=== PATIENT | female | born 2000 | race Caucasian/White ===

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

== ENCOUNTER 2022-04-20 10:03 | Emergency (ER) | payer OTHER, SELFPAY ==
[2022-04-20 10:45] VITALS: BP 123/73; PULSE 89; RESP 16; TEMP 36.7; O2SAT 98; BMI 49.2
[2022-04-20 11:02] LABS: UTC Strep Screen (Rapid) Positive (Negative)
--- NOTE | 2022-04-20 11:15 | EXP.UTC ---
Discharge Plan Disposition Patient Disposition: Home, Self-Care Condition: Good Prescriptions Prescriptions: New amoxicillin [amoxicillin] 500 mg tablet 500 mg PO BID 10 Days Qty: 20 0RF No Action naproxen 500 mg tablet 500 mg PO Q12H Qty: 20 0RF Rx Instructions: administer with food or milk fluoxetine [Prozac] 40 mg capsule 40 mg PO DAILY fluticasone propionate 50 mcg/actuation spray,suspension 1 spray INTRANASAL DAILY PRN Rx Instructions: administer into each nostril fluoxetine 20 MG tablet 20 mg PO DAILY Rx Instructions: TAKES 60 MG TOTAL DAILY bupropion HCl 300 MG tablet extended release 24 hr 300 mg PO DAILY Referrals Follow up/Referrals: Angie Short PA [Primary Care Provider] - See instructions Activity Restrictions/Add. Instructions Additional Instructions/Restrictions: Start antibiotics today be sure to take it as ordered with the full length of time although you should start feeling better in 24-48 hours. Change toothbrush and toothpaste 24-48 hours after starting antibiotics Tylenol or Motrin as needed for fever or pain Encourage fluids, water, Gatorade, Powerade, try cold fluids, popsicles, ice cream will make it feel better You are contagious for 24 hours. Avoid kissing anyone, no eating or drinking after anyone. You are contagious. Follow-up the ER for new or worsening symptoms or no noticeable improvement over the next 24-48 hours. Follow-up with PCP this week. Clinical Impressions Clinical Impression: Strep sore throat, Otitis media Instructions Patient Instructions: Middle Ear Infection, DI for Strep Throat Discharge ED Provider: Elina ([facility])Kenji [facility] [place] HPI General Stated complaint: Sore throat, headache, congestion Mode of Arrival: Ambulatory Source of Information: Patient Limitations: No Limitations Time Seen by Provider: 04/20/22 11:15 Description of Symptoms (Recalled from Triage Doc. by RN): PATIENT C/O SORE THROAT, LEFT EAR PAIN, HEADACHE AND CONGESTION X 4 DAYS HEENT Symptoms (Recalled from RN notes): Yes Resp Symptoms (Recalled from RN notes): No Skin Symptoms (Recalled from RN notes): No MS Symptoms (Recalled from RN notes): No Functional Status (Recalled from RN notes): WNL History of Present Illness Provider Complaint: 21 yr old female presnts for left ear pain, sore throat, slaughter and congestion for 4 days Related Data Home Medications Medication Instructions Recorded Confirmed fluoxetine 40 mg capsule (Prozac) 40 mg PO DAILY Depression 05/27/17 09/11/20 bupropion HCl 300 mg 24 hr tablet, 300 mg PO DAILY Anxiety 10/30/18 09/11/20 extended release fluoxetine 20 mg tablet 20 mg PO DAILY Depression 10/30/18 09/11/20 fluticasone propionate 50 1 spray intranasal DAILY PRN 11/19/18 09/11/20 mcg/actuation nasal spray,suspension Previous Rx's Medication Instructions Recorded naproxen 500 mg tablet 500 mg PO Q12H #20 tabs 09/11/20 amoxicillin 500 mg tablet 500 mg PO BID 10 days #20 tabs 04/20/22 Allergies Allergy/AdvReac Type Severity Reaction Status Date / Time cefdinir Allergy Mild Verified 09/11/20 15:24 ceftriaxone [From Rocephin] Allergy Mild Verified 09/11/20 15:24 Worker's Comp Is this a Worker's Comp case?: No [facility] Disclaimer: The information contained in this section may have been updated after the patient was seen, as this information can be updated by other users. 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
[2022-04-20 11:20] VITALS: BP 123/73; PULSE 89; RESP 16; TEMP 36.7; O2SAT 98
== END 2022-04-20 11:27 | disposition home or self-care (01) ==
PROVIDERS: Emergency Provider Nurse Practitioner Family; PCP Physician Assistant
DX: J02.0 Streptococcal pharyngitis (principal); B95.0 Streptococcus, group A, as the cause of diseases classified elsewhere; H92.02 Otalgia, left ear; R51.9 Headache, unspecified; R09.81 Nasal congestion; Z79.51 Long term (current) use of inhaled steroids; Z79.1 Long term (current) use of non-steroidal anti-inflammatories (NSAID); Z88.8 Allergy status to other drugs, medicaments and biological substances
CPT/HCPCS: 87880; 99213; G0463

== ENCOUNTER 2022-05-15 08:36 | Emergency (ER) | payer OTHER, SELFPAY ==
[2022-05-15] VITALS (7 sets, daily range): BP systolic 112–153; BP diastolic 71–99; PULSE 63–90; RESP 16–18; TEMP 36.8; O2SAT 95–98; BMI 34.9; BMI 49.4; BMI 49.2
--- NOTE | 2022-05-15 09:18 | EXP.UTC ---
Discharge Plan Disposition Patient Disposition: Home, Self-Care Condition: Good Prescriptions Prescriptions: New methocarbamol 750 mg tablet 750 mg PO Q8H Qty: 30 0RF lidocaine [Lidoderm] 5 % adhesive patch,medicated 1 patch topical DAILY Qty: 30 0RF Rx Instructions: leave on most painful area for up to 12 hrs ibuprofen 600 mg tablet 600 mg PO Q8H PRN (Reason: pain) Qty: 60 0RF No Action fluoxetine [Prozac] 40 mg capsule 40 mg PO DAILY Rx Instructions: takes 40+20=60 mg total fluoxetine 20 MG tablet 20 mg PO DAILY Rx Instructions: TAKES 60 MG TOTAL DAILY bupropion HCl 300 MG tablet extended release 24 hr 300 mg PO DAILY Referrals Follow up/Referrals: Angie Short PA [Primary Care Provider] - See instructions Clinical Impressions Clinical Impression: Low back pain Instructions Patient Instructions: DI for Low Back Pain, Activity May Be Better Than Rest for Low Back Pain Recovery, Lidocaine Transdermal Patch, Ibuprofen, Methocarbamol Discharge ED Provider: Sky Ash [facility] General Chief complaint: Abdominal Pain Stated complaint: Rt side back pain Mode of Arrival: Ambulatory Source of Information: Patient and Relative Limitations: No Limitations Time Seen by Provider: 05/15/22 09:18 Description of Symptoms (Recalled from Triage Doc. by RN): . History of Present Illness Provider Complaint: pt comes in with right sided back pain that began last night. does not radiate or increase in intensity. symptoms describes as tightness and worse with some movements. Related Data Home Medications Medication Instructions Recorded Confirmed fluoxetine 40 mg capsule (Prozac) 40 mg PO DAILY Depression 05/27/17 05/15/22 bupropion HCl 300 mg 24 hr tablet, 300 mg PO DAILY Anxiety 10/30/18 05/15/22 extended release fluoxetine 20 mg tablet 20 mg PO DAILY Depression 10/30/18 05/15/22 Previous Rx's Medication Instructions Recorded ibuprofen 600 mg tablet 600 mg PO Q8H PRN pain #60 tabs 05/15/22 lidocaine 5 % topical patch 1 patch topical DAILY #30 ea 05/15/22 (Lidoderm) methocarbamol 750 mg tablet 750 mg PO Q8H #30 tabs 05/15/22 Allergies Allergy/AdvReac Type Severity Reaction Status Date / Time cefdinir Allergy Mild Verified 05/15/22 09:29 ceftriaxone [From Rocephin] Allergy Mild Verified 05/15/22 09:29 [facility] Disclaimer: The information contained in this section may have been updated after the patient was seen, as this information can be updated by other users. Medical History Pharyngitis Surgical History History of mandibular surgery Social History Smoking Status: Never smoker second hand exposure: No alcohol intake: never substance use type: denies use current occupational status: student Travel in the last 8 weeks: None household members: family housing: house current occupational exposures/hazards: No ROS Obtained: Yes All systems reviewed & no additional complaints except as documented Constitutional Constitutional: Denies chills and Denies fever(s) Eyes Eyes: Denies eye discharge ENT Ears, Nose, Mouth, and Throat: Denies dizziness, Denies otalgia and Denies sore throat Cardiovascular Cardiovascular: Denies chest pain Respiratory Respiratory: Denies shortness of breath, Denies chest congestion, Denies cough, Denies stridor and Denies wheezing Gastrointestinal Gastrointestingal: Denies nausea or vomiting Musculoskeletal Musculoskeletal: Reports system reviewed and no additional complaints, except as documented and Denies arthralgias Integumentary/Breasts Skin/Breast: Denies rash Neurologic Neurologic: Denies dizziness and Denies paresthesias Allergic/Immunologic Allergic/Immunologic: Denies wheezing Physical Exam General General appea
[2022-05-15 09:38] LABS: Apearance,Urine Clear (Clear); Bilirubin,Urine Negative (Negative); Blood, Urine 1+ (Negative); Color,Urine Dark Yellow (Yellow); Glucose,Urine (UA) Negative (Negative); Ketones,Urine Negative (Negative); PH,Urine 5.5 (5.0-8.5); Protein,Urine Negative (Negative)
[2022-05-15 09:39] LABS: UTC Leukocyte Esterase,Urine Negative (Negative); UTC Nitrate,Urine Negative (Negative); Urobilinogen,Urine 0.2 EU/dl (0.2)
--- NOTE | 2022-05-15 09:48 | CT_ITS ---
FINAL REPORT TECHNIQUE: Noncontrast CT exam of the abdomen and pelvis. This study was performed with techniques to keep radiation doses as low as reasonably achievable (ALARA). Individualized dose reduction techniques using automated exposure control or adjustment of mA and/or kV according to the patient''s size were employed. CLINICAL HISTORY: r/o kidney stone left flank pain since last night with nausea COMPARISON: None FINDINGS: Abdomen: Lung bases are clear. Solitary punctate calcified gallstone without gallbladder disease. The remaining solid organs are unremarkable. No obstruction identified. The kidneys show no stone disease or obstruction. No obvious renal mass is present. No ureteral stones are present. Pelvis: Appendix is normal. Urinary bladder is unremarkable. Dominant cystic mass right central pelvis measuring 8.9 x 6.6 x 6.3 cm, likely ovarian in origin. Benign neoplasm favored. Left ovary and uterus are unremarkable. IMPRESSION: No evidence of upper urinary tract stone disease or obstruction. Incidental cystic mass right adnexa. Recommend gynecologic follow-up with pelvic ultrasound. Uncomplicated cholelithiasis. Reviewed, Interpreted and Dictated by Denny Chavez MD Transcribed by Kayli Brown Authenticated and [facility]
[2022-05-15 10:06] LABS: Basophils # 0.1 K/mm3 (0-0.2); Basophils % 0.6 % (0.1-2.0); Chloride 108 mmol/L (98-107); Eosinophils # 0.3 K/mm3 (0.0-0.4); Eosinophils % 3.4 % (0.1-12.0); Hematocrit 36.8 % (37.0-47.0); Lymphocytes # 1.9 K/mm3 (0.7-4.5); Lymphocytes % 23.8 % (10-50); Mean Corpuscular HGB Conc 32.7 g/dL (31.8-35.4); Mean Corpuscular Hemoglobin 25.8 pg (27.0-31.2); Mean Corpuscular Volume 78.9 fl (81-99); Mean Platelet Volume 7.1 fl (7.4-10.4); Monocytes # 0.4 K/mm3 (0.1-1.0); Monocytes % 4.8 % (1.7-9.3); Neutrophils # 5.4 K/mm3 (1.8-7.8); Neutrophils % 67.4 % (37.0-80.0); Platelet Count 408 K/mm3 (142-424); Potassium 3.9 mmoL/L (3.5-5.1); Red Blood Count 4.67 M/mm3 (4.20-5.40); Red Cell Distribution Width 14.8 % (11.5-17.5); Sodium 139 mmol/L (136-145)
[2022-05-15 10:08] LABS: Blood Urea Nitrogen 15 mg/dl (7-17); Creatinine Clearance Estimated 129 mL/min (50-200); Estimated Glomerular Filt Rate 107 ml/min (>60); GFR (African American) 129 ML/MIN (>60)
[2022-05-15 10:09] LABS: Alanine Aminotransferase 31 U/L (12-78); Albumin Level 4.3 g/dl (3.5-5.0); Albumin/Globulin Ratio 1.3 (1.1-1.8); Alkaline Phosphatase 94 U/L (38-126); Anion Gap 11.9 mEq/L (5-15); Aspartate Amino Transferase 23 U/L (14-36); Bilirubin,Total 0.3 mg/dl (0.2-1.3); Calcium 8.8 mg/dl (8.4-10.2); Carbon Dioxide 23 mmol/L (22.0-30.0); Globulin 3.4 g/dL (1.3-3.2); Glucose 120 mg/dl (74-100); Lipase 55 U/L (23-300); Total Protein,Serum 7.7 g/dl (6.3-8.2)
[2022-05-15 10:14] LABS: Lactic Acid 0.8 mmol/L (0.7-2.1)
[2022-05-15 10:30] LABS: Urine Pregnancy, HCG Qual. Negative (Negative)
--- NOTE | 2022-05-15 10:34 | PC.NURSE ---
PT TRANSPORTED TO RADIOLOGY.
--- NOTE | 2022-05-15 12:13 | PC.NURSE ---
PROVIDED PT WITH [facility].
--- NOTE | 2022-05-15 12:16 | PC.NURSE ---
Called radiology and spoke with Kyle to see if there was a preliminary report available, she is faxing one down at this time.
--- NOTE | 2022-05-15 12:17 | PC.NURSE ---
pt sitting up in chair in ED room 8 with Mother. No other needs at this time. Call light within reach
--- NOTE | 2022-05-15 12:22 | PC.NURSE ---
Preliminary report given to TERELL JONES
--- NOTE | 2022-05-15 12:27 | HMH.EDGENADL ---
Discharge Plan Disposition Patient Disposition: Home, Self-Care Condition: Good Prescriptions Prescriptions: New methocarbamol 750 mg tablet 750 mg PO Q8H Qty: 30 0RF lidocaine [Lidoderm] 5 % adhesive patch,medicated 1 patch topical DAILY Qty: 30 0RF Rx Instructions: leave on most painful area for up to 12 hrs ibuprofen 600 mg tablet 600 mg PO Q8H PRN (Reason: pain) Qty: 60 0RF No Action fluoxetine [Prozac] 40 mg capsule 40 mg PO DAILY Rx Instructions: takes 40+20=60 mg total fluoxetine 20 MG tablet 20 mg PO DAILY Rx Instructions: TAKES 60 MG TOTAL DAILY bupropion HCl 300 MG tablet extended release 24 hr 300 mg PO DAILY Referrals Follow up/Referrals: Angie Short PA [Primary Care Provider] - See instructions Clinical Impressions Clinical Impression: Low back pain Instructions Patient Instructions: Methocarbamol, Lidocaine Transdermal Patch, Ibuprofen, DI for Low Back Pain, Activity May Be Better Than Rest for Low Back Pain Recovery Discharge ED Provider: Sky Ash Adult HPI General Chief complaint: Abdominal Pain Stated complaint: Rt side back pain Time Seen by Provider: 05/15/22 09:18 Mode of Arrival: Ambulatory Source of Information: Patient and Parent(s) Limitations: No Limitations Description of Symptoms (Recalled from ER Triage Doc. by RN): pt comes in with c/o lower right back pain that began last night. History of Present Illness HPI narrative: Assumed care from [facility], 21-year-old female presenting with pain in the right flank and lower back that started last night, no preceding trauma or strain that she is aware of, does report difficulty with urination, no dysuria or hematuria, no fevers, there is some mild nausea associated with this. She denies any history of kidney stone Related Data Home Medications Medication Instructions Recorded Confirmed fluoxetine 40 mg capsule (Prozac) 40 mg PO DAILY Depression 05/27/17 05/15/22 bupropion HCl 300 mg 24 hr tablet, 300 mg PO DAILY Anxiety 10/30/18 05/15/22 extended release fluoxetine 20 mg tablet 20 mg PO DAILY Depression 10/30/18 05/15/22 Previous Rx's Medication Instructions Recorded ibuprofen 600 mg tablet 600 mg PO Q8H PRN pain #60 tabs 05/15/22 lidocaine 5 % topical patch 1 patch topical DAILY #30 ea 01/05/23 (Lidoderm) methocarbamol 750 mg tablet 750 mg PO Q8H #30 tabs 05/15/22 Allergies Allergy/AdvReac Type Severity Reaction Status Date / Time cefdinir Allergy Mild Verified 05/15/22 09:29 ceftriaxone [From Rocephin] Allergy Mild Verified 05/15/22 09:29 [facility] Disclaimer: The information contained in this section may have been updated after the patient was seen, as this information can be updated by other users. Medical History Pharyngitis Surgical History History of mandibular surgery Social History Smoking Status: Never smoker second hand exposure: No alcohol intake: never substance use type: denies use current occupational status: student Travel in the last 8 weeks: None household members: family housing: house current occupational exposures/hazards: No ROS Obtained: Yes Systems reviewed as appropriate & no additional complaints except as documented Constitutional Constitutional: Reports system reviewed and no additional complaints, except as documented Eyes Eyes: Reports system reviewed and no additional complaints, except as documented ENT Ears, Nose, Mouth, and Throat: Reports system reviewed and no additional complaints, except as documented Cardiovascular Cardiovascular: Reports system reviewed and no additional complaints, except as documented Respiratory Respiratory: Reports system reviewed and no additional complaints, except as documented Gastrointest
--- NOTE | 2022-05-15 12:34 | PC.NURSE ---
ER MD at speaking with patient and family regarding update on POC
== END 2022-05-15 12:48 | disposition home or self-care (01) ==
LOC: ER 08:48 → UTC 08:49 → ER 09:45
PROVIDERS: Emergency Medicine; Emergency Provider Nurse Practitioner Family; PCP Physician Assistant
DX: M54.50 Low back pain, unspecified (principal); Z87.09 Personal history of other diseases of the respiratory system
CPT/HCPCS: 74176; 80053; 81003; 81025; 83605; 83690; 85025; 87086; 96374; 96375; 99285; J2405

== ENCOUNTER 2022-05-16 18:20 | Observation (INO) | payer OTHER, SELFPAY ==
[2022-05-16] VITALS (11 sets, daily range): BP systolic 101–142; BP diastolic 60–89; PULSE 97–117; RESP 18–28; TEMP 36.4–37.2; O2SAT 92–97; BMI 49.4
--- NOTE | 2022-05-16 18:51 | US_ITS ---
PROCEDURE INFORMATION: Exam: US Duplex Artery or Vein of the Abdominal and/or Reproductive Organs, Limited Exam date and time: 05/16/2022 7:17 PM Age: 21 years old Clinical indication: Abnormal findings; Abnormal imaging test; Patient HX: Recent ct-- onset of worsening RT side pain today; Additional info: Ovarian cyst, R/O torsion TECHNIQUE: Imaging protocol: Real-time duplex ultrasound scan of the arterial or venous flow of the abdomen and/or reproductive organs, with color Doppler flow and spectral waveform analysis with image documentation. Exam focused on the region of clinical interest. Duplex exam was performed to evaluate for vascular conditions. COMPARISON: CT ABDOMEN PELVIS WO CON 05/15/2022 10:35 AM FINDINGS: Ovaries: Normal color flow and Doppler waveforms within the left ovary. 8.2 x 6.5 x 7.6 cm mixed echogenicity mass within the region of the right ovary without definite flow. IMPRESSION: Mixed echogenicity mass within the region of the right ovary which may be benign or malignant and does raise concern for torsion. PROCEDURE INFORMATION: Exam: US Pelvis, Transvaginal Exam date and time: 05/16/2022 7:17 PM Age: 21 years old Clinical indication: Abnormal findings; Abnormal imaging test; Patient HX: Recent ct-- onset of worsening RT side pain today; Additional info: Ovarian cyst, R/O torsion TECHNIQUE: Imaging protocol: Real-time transvaginal pelvic ultrasound with image documentation. Transvaginal imaging was used for better evaluation of the endometrium, adnexa, and/or cervix. COMPARISON: CT ABDOMEN PELVIS WO CON 05/15/2022 10:35 AM FINDINGS: Uterus: Uterus is normal. Endometrial stripe is normal. Right ovary/adnexa: 8.2 x 6.5 x 7.6 cm mixed echogenicity mass within the region of the right ovary without definite flow. Left ovary/adnexa: Normal. No mass. Normal ovarian blood flow. Intraperitoneal space: Large volume free fluid.
--- NOTE | 2022-05-16 18:53 | HMH.EDGENADL ---
Discharge Plan Disposition Patient Disposition: Still a Patient Condition: Fair Prescriptions Prescriptions: No Action fluoxetine [Prozac] 40 mg capsule 40 mg PO DAILY Rx Instructions: takes 40+20=60 mg total fluoxetine 20 MG tablet 20 mg PO DAILY Rx Instructions: TAKES 60 MG TOTAL DAILY bupropion HCl 300 MG tablet extended release 24 hr 300 mg PO DAILY methocarbamol 750 mg tablet 750 mg PO Q8H Qty: 30 0RF lidocaine [Lidoderm] 5 % adhesive patch,medicated 1 patch topical DAILY Qty: 30 0RF Rx Instructions: leave on most painful area for up to 12 hrs ibuprofen 600 mg tablet 600 mg PO Q8H PRN (Reason: pain) Qty: 60 0RF Referrals Follow up/Referrals: Angie Short PA [Primary Care Provider] - See instructions Clinical Impressions Clinical Impression: Ovarian cyst, Ovarian torsion, Free fluid in pelvis Discharge ED Provider: Ivan Jaquez General Adult HPI General Chief complaint: PAIN Stated complaint: Abd pain Time Seen by Provider: 05/16/22 18:44 Mode of Arrival: Ambulatory Source of Information: Patient Limitations: No Limitations Description of Symptoms (Recalled from ER Triage Doc. by RN): pt to ed c/o right flank pain that radiates to the lower abd. pt was seen in the ed on 05/16 for similar complaint. History of Present Illness HPI narrative: Complains of pelvic pain. Seen in the emergency department yesterday for right flank pain. Had a CT scan. No kidney stone seen. Treated for musculoskeletal pain. She now has pain diffusely across her pelvic area. She called Dr. Mariscal's office today and they reviewed the CT scan result which showed a cyst and gallstones. She returns to the emergency department for further evaluation. She has had vomiting today. No diarrhea and no other new symptoms. No fever. States her pain today is worse than it was yesterday. Currently rates it 10/18. Related Data Home Medications Medication Instructions Recorded Confirmed fluoxetine 40 mg capsule (Prozac) 40 mg PO DAILY Depression 05/27/17 05/15/22 bupropion HCl 300 mg 24 hr tablet, 300 mg PO DAILY Anxiety 10/30/18 05/15/22 extended release fluoxetine 20 mg tablet 20 mg PO DAILY Depression 10/30/18 05/15/22 Previous Rx's Medication Instructions Recorded ibuprofen 600 mg tablet 600 mg PO Q8H PRN pain #60 tabs 05/15/22 lidocaine 5 % topical patch 1 patch topical DAILY #30 ea 05/15/22 (Lidoderm) methocarbamol 750 mg tablet 750 mg PO Q8H #30 tabs 05/15/22 Allergies Allergy/AdvReac Type Severity Reaction Status Date / Time cefdinir Allergy Mild Verified 05/15/22 09:29 ceftriaxone [From Rocephin] Allergy Mild Verified 05/15/22 09:29 [facility] Disclaimer: The information contained in this section may have been updated after the patient was seen, as this information can be updated by other users. Medical History Pharyngitis Surgical History History of mandibular surgery Social History Smoking Status: Never smoker second hand exposure: No alcohol intake: never substance use type: denies use current occupational status: student Travel in the last 8 weeks: None household members: family housing: house current occupational exposures/hazards: No ROS Obtained: Yes Systems reviewed as appropriate & no additional complaints except as documented Constitutional Constitutional: Denies fever(s), Denies headache(s) and Denies weakness ENT Ears, Nose, Mouth, and Throat: Denies headache(s), Denies nasal discharge and Denies sore throat Cardiovascular Cardiovascular: Denies chest pain Respiratory Respiratory: Denies shortness of breath and Denies cough Gastrointestinal Gastrointestingal: Reports abdominal pain; Denies constipation, diarrhea or vomiting Genitourinary Female
[2022-05-16 19:03] LABS: Chloride 104 mmol/L (98-107); Potassium 3.7 mmoL/L (3.5-5.1); Sodium 139 mmol/L (136-145)
[2022-05-16 19:06] LABS: Alanine Aminotransferase 25 U/L (12-78); Alkaline Phosphatase 77 U/L (38-126); Anion Gap 13.7 mEq/L (5-15); Aspartate Amino Transferase 20 U/L (14-36); Bilirubin,Total 0.8 mg/dl (0.2-1.3); Blood Urea Nitrogen 9 mg/dl (7-17); Calcium 8.7 mg/dl (8.4-10.2); Carbon Dioxide 25 mmol/L (22.0-30.0); Creatinine Clearance Estimated 151 mL/min (50-200); Estimated Glomerular Filt Rate 127 ml/min (>60); GFR (African American) 154 ML/MIN (>60); Glucose 105 mg/dl (74-100)
[2022-05-16 19:07] LABS: Albumin Level 4.3 g/dl (3.5-5.0); Albumin/Globulin Ratio 1.3 (1.1-1.8); Globulin 3.4 g/dL (1.3-3.2); Lipase 23 U/L (23-300); Total Protein,Serum 7.7 g/dl (6.3-8.2)
[2022-05-16 19:11] LABS: Basophils # 0.2 K/mm3 (0-0.2); Basophils % 1.7 % (0.1-2.0); Eosinophils # 0.2 K/mm3 (0.0-0.4); Eosinophils % 1.4 % (0.1-12.0); Hematocrit 36.1 % (37.0-47.0); Hemoglobin 11.7 g/dL (12.2-16.2); Lymphocytes # 1.2 K/mm3 (0.7-4.5); Lymphocytes % 8.5 % (10-50); Mean Corpuscular HGB Conc 32.5 g/dL (31.8-35.4); Mean Corpuscular Hemoglobin 25.9 pg (27.0-31.2); Mean Corpuscular Volume 79.6 fl (81-99); Mean Platelet Volume 7.3 fl (7.4-10.4); Neutrophils # 11.1 K/mm3 (1.8-7.8); Neutrophils % 81.4 % (37.0-80.0); Platelet Count 353 K/mm3 (142-424); Red Blood Count 4.53 M/mm3 (4.20-5.40); Red Cell Distribution Width 15.1 % (11.5-17.5); White Blood Count 13.6 K/mm3 (4.5-13.0)
[2022-05-16 19:13] LABS: Microscopic, Urine URINE MICROSCOPIC (MICROSCOPIC)
--- NOTE | 2022-05-16 19:40 | PC.NURSE ---
pt out of room to US.
--- NOTE | 2022-05-16 19:52 | PC.NURSE ---
pt back from US @ this time.
[2022-05-16 19:58] LABS: Appearance,Urine CLEAR (Clear); Blood, Urine TRACE-L (Negative); Color,Urine YELLOW (Yellow); Glucose,Urine (UA) Negative (Negative); Ketones,Urine TRACE (Negative); Leukocyte Esterase,Urine Negative (Negative); Nitrate,Urine Negative (Negative); PH,Urine 5.5 (5.0-8.5); Protein,Urine Negative (Negative); Specific Gravity, Urine 1.025 (1.005-1.030); Urobilinogen,Urine 0.2 EU/dl (0.2)
[2022-05-16 20:12] LABS: Bilirubin,Urine Negative (Negative)
[2022-05-16 20:13] LABS: Amorphous Sediment,Urine Trace /lpf; RBC,Urine Occasional #/hpf (0-3); Squamous Epithelial Cell,Urine Occasional #/hpf (0-5)
--- NOTE | 2022-05-16 20:44 | PC.NURSE ---
Dr Brown at bedside with pt
--- NOTE | 2022-05-16 21:02 | EXP.HP ---
History of Present Illness *Admission Date: 05/16/22 *Reason for visit:: Severe right lower quadrant pain, right ovarian cyst *History of present illness: She is a 21-year-old 0 para 0 young lady who complains of right lower quadrant pain that started about 48 hours ago. She was seen in the ER last night and a CT scan showed that she had a complex 8 cm right ovarian mass. She had increasing pain this evening and came back to the ER. An ultrasound shows that she now has significant free fluid in the pelvis as well as this complex mass. To me it looks like a hemorrhagic ovarian cyst. She could also have a torsion of this ovary as well. [facility] Disclaimer: The information contained in this section may have been updated after the patient was seen, as this information can be updated by other users. Medical History Pharyngitis Surgical History History of mandibular surgery Social History Smoking Status: Never smoker second hand exposure: No alcohol intake: never substance use type: denies use current occupational status: student Travel in the last 8 weeks: None household members: family housing: house current occupational exposures/hazards: No Review of Systems Review of Systems Review of systems:: pertinent systems reviewed and negative unless documented below Constitutional Constitutional: Denies headache(s) and Denies weakness ENT Ears, Nose, Mouth, and Throat: Denies headache(s) *Musculoskeletal Musculoskeletal: Denies numbness *Neurologic Neurologic: Denies headache(s), Denies numbness and Denies weakness Meds Home Medications and Allergies Home Medications Medication Instructions Recorded Confirmed Type fluoxetine 40 mg capsule (Prozac) 40 mg PO DAILY Depression 05/27/17 05/15/22 History bupropion HCl 300 mg 24 hr tablet, 300 mg PO DAILY Anxiety 10/30/18 05/15/22 History extended release fluoxetine 20 mg tablet 20 mg PO DAILY Depression 10/30/18 05/15/22 History ibuprofen 600 mg tablet 600 mg PO Q8H PRN pain #60 tabs 05/15/22 Rx lidocaine 5 % topical patch 1 patch topical DAILY #30 ea 05/15/22 Rx (Lidoderm) methocarbamol 750 mg tablet 750 mg PO Q8H #30 tabs 05/15/22 Rx New Prescriptions to Start Prescriptions: Allergies Allergy/AdvReac Type Severity Reaction Status Date / Time cefdinir Allergy Mild Verified 05/15/22 09:29 ceftriaxone [From Rocephin] Allergy Mild Verified 05/15/22 09:29 Exam Data for Last 24 hours Vital signs and Labs for Last 24 Hours: Temp Pulse Resp BP Pulse Ox 97.8 F 113 H 18 114/69 97 05/16/22 18:42 05/16/22 20:00 05/16/22 18:42 05/16/22 20:00 05/16/22 20:00 Laboratory Results - last 24 hr 05/16/22 18:25: Urine Color Yellow, Urine Appearance Clear, Urine pH 5.5, Ur Specific [place] 1.025, Urine Protein Negative, Urine Glucose (UA) Negative, Urine Ketones Trace, Urine Blood Trace-l, Urine Nitrate Negative, Urine Bilirubin Negative, Urine Urobilinogen 0.2, Ur Leukocyte Esterase Negative, Urine RBC Occasional, Ur Squamous Epith Cells Occasional, Amorphous Sediment Trace 05/16/22 18:45: WBC 13.6 H D, RBC 4.53, Hgb 11.7 L, Hct 36.1 L, MCV 79.6 L, MCH 25.9 L, MCHC 32.5, RDW 15.1, Plt Count 353, MPV 7.3 L, Neut % (Auto) 81.4 H, Lymph % (Auto) 8.5 L, Terry % (Auto) 7.0, Eos % (Auto) 1.4, Baso % (Auto) 1.7, Neut # (Auto) 11.1 H, Lymph # (Auto) 1.2, Terry # (Auto) 1.0, Eos # (Auto) 0.2, Baso # (Auto) 0.2 05/16/22 18:45: Sodium 139, Potassium 3.7, Chloride 104, Carbon Dioxide 25, Anion Gap 13.7, BUN 9 D, Creatinine 0.60, Estimated Creat Clear 151, Estimated GFR 127, Est GFR ( Amer) 154, Glucose 105 H, Calcium 8.7, Total Bilirubin 0.8, AST 20, ALT 25, Alkaline Phosphatase 77, Total Protein 7.7, Albumin 4.3, Globulin 3.4 H, Albumin/Globulin Ratio 1.3, Lipase 23 I & O for Last 24 ho
[2022-05-16 21:15] LABS: Coronavirus 19, PCR Not Detected (NotDetected); Influenza A, PCR Not Detected (NotDetected); Influenza B, PCR Not Detected (NotDetected)
--- NOTE | 2022-05-16 21:36 | PC.NURSE ---
Pt gone to surgery @ this time.
--- NOTE | 2022-05-16 22:16 | EXP.ANES.CKL ---
[facility] Disclaimer: The information contained in this section may have been updated after the patient was seen, as this information can be updated by other users. Medical History Pharyngitis Surgical History History of mandibular surgery Social History Smoking Status: Never smoker second hand exposure: No alcohol intake: never substance use type: denies use current occupational status: student Travel in the last 8 weeks: None household members: family housing: house current occupational exposures/hazards: No [facility] Anesthesia Checklist Patient Identification Patient Identification: Arm Band and Verbal (Name & ) Structural Data Admitted From: Emergency Dept Planned Operative Procedure/s: Right ovarian cystectomy Consent for Planned Operative Procedure(s) Verified: Yes Verified Documents: Surgical Consent NPO Status Verified Time NPO: 16:00 (sips of water) Additional verifications Anesthesia Reactions: No Airway Assessment C-Spine Mobility Assessed: Yes TMJ Mobility Assessed: Yes Dentition: Good Dentition Neurological Assessment Level of Consciousness: Awake, Alert and Appropriate Anesthesia Plan Anesthesia Risk discussed: Yes ASA Class: III Anesthesia Type: General
--- NOTE | 2022-05-16 22:41 | SUR.OPER ---
2241-pt's mother updated at this time
--- NOTE | 2022-05-16 23:17 | EXP.OP.NOTE ---
Date of procedure: 05/16/22 Pre-op Diagnosis:: Right lower quadrant pain, right ovarian mass, free fluid in the pelvis Post-op Diagnosis:: Torsion of the right fallopian tube with hemorrhage. Procedure performed:: Laparoscopic right salpingectomy Surgeon:: Carlos Escamilla MD DETASSELER:: Deejay Arizmendi Anesthesia: GETA Estimated blood loss (mL): 50 Clinical Note:: She is a 21-year-old 0 para 0 young lady who complains of right lower quadrant pain. A CT scan as well as ultrasound showed a six 8 x 6 cm complex mass on the right side. It was felt to be her right ovary, possible torsion. Operative findings:: She had an 8 cm mass on the right side that turned out to be her right fallopian tube that had twisted upon itself and filled up with blood. It was about 8 x 6 cm in size. The right ovary appeared normal as did the left ovary and tube. The uterus appeared normal. The upper abdomen appeared normal. The rest the pelvis appeared normal. Operative note:: She was taken the operating room where general anesthesia was found to be adequate. She was prepped and draped in normal sterile fashion in the semilithotomy position. A straight catheter was used to drain the bladder. A weighted speculum is placed in vagina and the antilipid the cervix was grasped with a tenaculum. Then using dilators I dilated the cervix to approximately 3 mm. I then placed a Jewell uterine manipulator into the uterine cavity and insufflated balloon. I injected 10 cc of ropivacaine around the umbilicus and made a small incision within the umbilicus. I then inserted a Veress needle into the abdominal cavity and insufflated the abdominal cavity to a pressure of 20 mmHg. I then inserted a 5 mm trocar under direct vision. I injected through and through the pubic hairline, made a small incision here and inserted a 10 mm trocar under direct vision. I identified the inferior epigastric arteries went lateral to these and injected through and through with 10 cc of ropivacaine. I then made a small incision and inserted a 5 mm trocar here under direct vision. The findings were as previously stated. I was then able to detorsed the tube and I saw that it was the distal half of the fallopian tube that was distended and torsed. It was purple in color. There was fluid within the tube itself. The fluid was straw-colored tinged with blood. Using her Traphill scalpel I cut across the tube near the ovary. This completely freed up the tube. I then made sure that hemostasis was excellent around the ovary using hemoclips as well as cautery. The fallopian tube was then morcellated and brought out through the 10 mm trocar. The last bits of the tube were brought out together in an Endo Catch bag through the 10 mm trocar. I then inspected the pelvis once again and rinsed it with saline. The ovary and fallopian tube and were completely hemostatic. I did elect to place a large piece of Surgicel over the right ovary. The gas was then out of the abdomen and once again hemostasis was assured. I injected approximately 20 cc of ropivacaine into the pelvis. Secondary trochars were then removed under direct vision. The camera and trocar removed together. The 10 mm trocar site was then closed deeply with [id number] 2-0 Vicryl suture followed by running subcuticular 4-0 Monocryl suture. The 5 mm trocar sites were closed with subcuticular 4 Monocryl suture. Sterile dressings were applied. She tolerated the procedure well and was taken to the recovery room in excellent condition. All sponge, instrument and needle counts were correct. The estimated blood loss was less than 50 cc. Condition: stable Disposition: PACU Specimens:: Right fallopian tube Complications:: None
--- NOTE | 2022-05-16 23:25 | P.PNANES_ITS ---
[facility] Anesthesia Record Part I Anesthesia Record I Intake, IV Amount: 1,200 Estimated blood loss (mL): 40 Urine output (mL): 150 Blood Pressure: 120/71 SaO2: 92 Pulse Rate: 101 Respiratory Rate: 28 Temperature: 97.5 F Patient is:: Drowsy, Oral/Nasal airway and Stable Stable to PACU at:: 23:21
[2022-05-17] VITALS (11 sets, daily range): BP systolic 105–130; BP diastolic 51–66; PULSE 86–108; RESP 15–18; TEMP 37–37.1; O2SAT 88–97
--- NOTE | 2022-05-17 00:01 | PC.NURSE ---
2342-detailed report called to NORY De La Cruz 4230-pt transported to OB room 274 via hospital bed w/tim rails up and left in care of NORY De La Cruz with bed locked in lowest position, vss, pt stable
--- NOTE | 2022-05-17 05:41 | EXP.DC.SUM ---
General Admission date:: 05/16/22 Discharge date: 05/17/22 HPI HPI HPI: She is a 21-year-old 0 para 0 young lady who complains of right lower quadrant pain that started about 48 hours ago. She was seen in the ER last night and a CT scan showed that she had a complex 8 cm right ovarian mass. She had increasing pain this evening and came back to the ER. An ultrasound shows that she now has significant free fluid in the pelvis as well as this complex mass. To me it looks like a hemorrhagic ovarian cyst. She could also have a torsion of this ovary as well. Hospital Course Hospital Course Hospital Course: On May 16, 2022 she underwent a laparoscopic removal of her right fallopian tube for torsion and hemosalpinx. The right tube was distended approximately two 8 x 6 cm. It was filled with fluid and blood. It was significantly edematous and necrotic. She has done well postoperatively and has remained afebrile throughout hospitalization. She is eating and drinking and ambulating. Her pain is reasonably well controlled. She is discharged home to follow-up with me in approximately 2 weeks time. She was given a prescription for Percocet 5/325 number 20 tablets. She was given the usual instructions with respect to limiting her activity, driving and sexual activity. She was given instructions with respect to wound care. Her condition on discharge is stable and improved Exam Data for Last 24 hours Vital signs and Labs for Last 24 Hours: Temp Pulse Resp BP Pulse Ox 98.6 F 91 H 17 108/56 L 97 05/17/22 02:30 05/17/22 03:00 05/17/22 03:00 05/17/22 03:00 05/17/22 03:00 Laboratory Results - last 24 hr 05/16/22 18:25: Urine Color Yellow, Urine Appearance Clear, Urine pH 5.5, Ur Specific [place] 1.025, Urine Protein Negative, Urine Glucose (UA) Negative, Urine Ketones Trace, Urine Blood Trace-l, Urine Nitrate Negative, Urine Bilirubin Negative, Urine Urobilinogen 0.2, Ur Leukocyte Esterase Negative, Urine RBC Occasional, Ur Squamous Epith Cells Occasional, Amorphous Sediment Trace 05/16/22 18:45: WBC 13.6 H D, RBC 4.53, Hgb 11.7 L, Hct 36.1 L, MCV 79.6 L, MCH 25.9 L, MCHC 32.5, RDW 15.1, Plt Count 353, MPV 7.3 L, Neut % (Auto) 81.4 H, Lymph % (Auto) 8.5 L, Power % (Auto) 7.0, Eos % (Auto) 1.4, Baso % (Auto) 1.7, Neut # (Auto) 11.1 H, Lymph # (Auto) 1.2, Power # (Auto) 1.0, Eos # (Auto) 0.2, Baso # (Auto) 0.2 05/16/22 18:45: Sodium 139, Potassium 3.7, Chloride 104, Carbon Dioxide 25, Anion Gap 13.7, BUN 9 D, Creatinine 0.60, Estimated Creat Clear 151, Estimated GFR 127, Est GFR ( Amer) 154, Glucose 105 H, Calcium 8.7, Total Bilirubin 0.8, AST 20, ALT 25, Alkaline Phosphatase 77, Total Protein 7.7, Albumin 4.3, Globulin 3.4 H, Albumin/Globulin Ratio 1.3, Lipase 23 05/16/22 21:05: SARS-CoV-2 (PCR) Not detected, Influenza A Untype (PCR) Not detected, Influenza Type B (PCR) Not detected I & O for Last 24 hours: Intake & Output 05/14/22 05/15/22 05/16/22 05/17/22 11:59 11:59 11:59 11:59 Intake Total 1200 / 1200 Balance 1200 / 1200 Weight 325 lb Constitutional Constitutional: no acute distress *Routine HEENT Exam Head: Present normocephalic *Routine Respiratory Exam Respiratory: Present normal respiratory effort *Routine Abdominal Exam Abdominal: Present soft; Absent distended Results Data Completed and Pending Labs on day of discharge: Labs from last 24 hours 05/16/22 05/16/22 05/16/22 21:05 18:45 18:45 WBC 13.6 H D RBC 4.53 Hgb 11.7 L Hct 36.1 L MCV 79.6 L MCH 25.9 L MCHC 32.5 RDW 15.1 Plt Count 353 MPV 7.3 L Neut % (Auto) 81.4 H Lymph % (Auto) 8.5 L Power % (Auto) 7.0 Eos % (Auto) 1.4 Baso % (Auto) 1.7 Neut # (Auto) 11.1 H Lymph # (Auto) 1.2 Power # (Auto) 1.0 Eos # (Auto) 0.2 Baso # (Auto) 0.2 Sodium 139 Potassium 3.7 Chloride 104 Carbon Dioxide 25 Anion Gap 13.7 BUN 9 D Creatinine 0.60 Estimat
--- NOTE | 2022-05-17 06:50 | PC.NURSE ---
pt has rested well throughout night, no complaints of pain or discomfort, discharge instructions reviewed with patient questions encouraged and answered, pt verbalizes understanding.
--- NOTE | 2022-05-20 14:00 | CARE MANAGER ---
Attempted post-discharge phone interview, no answer.
--- NOTE | 2022-05-26 07:02 | EXP.ANES.II ---
[facility] Anesthesia Record Part II Anesthesia Record Part II Discharge Time: 23:51 Destination: Obstetric Gynecology Dept PACU nurse assessment reviewed?: Yes Patient Condition:: Good Anesthesia Complications:: None Swallowing reflex intact?: Yes Cyanosis?: No Blood Pressure: 134/89 Pulse Rate: 109 Temperature: 98.6 F Mental Status: Alert & Oriented Pain level:: 0 Nausea and/or vomitting:: None Intake, IV Amount: 0
[2022-05-26 07:03] VITALS: BP 134/89; PULSE 109; TEMP 37
== END 2022-05-17 07:18 | disposition home or self-care (01) ==
LOC: ER 20:11 → SDC 21:39 → OB 22:25
PROVIDERS: Admitting Provider Nurse Practitioner Obstetrics & Gynecology; Emergency Provider Emergency Medicine; PCP Physician Assistant; Visit Provider Nurse Practitioner Obstetrics & Gynecology
PROC: (CPT 58925; principal; 2022-05-16 21:30)
DX: N83.521 Torsion of right fallopian tube (principal); N83.201 Unspecified ovarian cyst, right side; N83.511 Torsion of right ovary and ovarian pedicle; N70.11 Chronic salpingitis
CPT/HCPCS: 58661; 76830; 80053; 81001; 83690; 85025; 99285; C9803; G0378; J2405; U0003; U0005

== ENCOUNTER → 2022-10-30 18:55 | Outpatient (CLI) | payer OTHER, SELFPAY ==
[2022-10-30 19:46] LABS: Basophils % 0.3 % (0.1-2.0); Eosinophils # 0.2 K/mm3 (0.0-0.4); Hematocrit 36.9 % (37.0-47.0); Hemoglobin 11.7 g/dL (12.2-16.2); Lymphocytes # 1.9 K/mm3 (0.7-4.5); Lymphocytes % 25.4 % (10-50); Mean Corpuscular HGB Conc 31.7 g/dL (31.8-35.4); Mean Corpuscular Hemoglobin 24.7 pg (27.0-31.2); Mean Corpuscular Volume 77.8 fl (81-99); Mean Platelet Volume 8.4 fl (7.4-10.4); Monocytes # 0.5 K/mm3 (0.1-1.0); Monocytes % 6.2 % (1.7-9.3); Neutrophils % 66.1 % (37.0-80.0); Platelet Count 373 K/mm3 (142-424); Red Blood Count 4.74 M/mm3 (4.20-5.40); Red Cell Distribution Width 15.8 % (11.5-17.5); White Blood Count 7.6 K/mm3 (4.5-13.0)
[2022-10-30 20:05] LABS: Alanine Aminotransferase 41 U/L (12-78); Albumin Level 4.3 g/dl (3.5-5.0); Albumin/Globulin Ratio 1.4 (1.1-1.8); Alkaline Phosphatase 91 U/L (38-126); Aspartate Amino Transferase 27 U/L (14-36); Bilirubin,Total 0.4 mg/dl (0.2-1.3); Blood Urea Nitrogen 11 mg/dl (7-17); Calcium 8.9 mg/dl (8.4-10.2); Carbon Dioxide 23 mmol/L (22.0-30.0); Chloride 105 mmol/L (98-107); Chol/HDL Ratio 3.4 (1-3.5); Cholesterol 118 mg/dl (140-200); Estimated Glomerular Filt Rate 127 ml/min (>60); GFR (African American) 154 ML/MIN (>60); Globulin 3.1 g/dL (1.3-3.2); Glucose 90 mg/dl (74-100); HDL Cholesterol 35 mg/dl (40-60); Sodium 141 mmol/L (136-145); Total Protein,Serum 7.4 g/dl (6.3-8.2); Triglycerides 91 mg/dl (30-150); VLDL Cholesterol 18 mg/dL (0-40)
[2022-10-30 20:17] LABS: Direct LDL Cholesterol 65.49 mg/dL (100-129)
[2022-10-30 20:23] LABS: 25-OH Vitamin D, Total 28.4 ng/mL (30-100)
[2022-10-30 20:36] LABS: Thyroid Stimulating Hormone 1.31 uIU/mL (0.465-4.68)
[2022-10-30 22:53] LABS: Vitamin B12 516 pg/mL (239-931)
[2022-11-03 12:18] LABS: Iron 44 ug/dL (37-170)
[2022-11-03 12:27] LABS: Total Iron Binding Capacity 333 ug/dL (265-497)
[2022-11-03 12:54] LABS: Ferritin 36.7 ng/ml (6.24-137)
== END ==
PROVIDERS: PCP Physician Assistant; Visit Provider Physician Assistant
DX: R53.83 Other fatigue (principal); D64.9 Anemia, unspecified; E55.9 Vitamin D deficiency, unspecified
CPT/HCPCS: 80053; 80061; 82306; 82607; 82728; 83540; 83550; 84443; 85025

== ENCOUNTER → 2023-04-03 15:00 | Outpatient (CLI) | payer OTHER, SELFPAY ==
--- NOTE | 2023-04-03 15:01 | CT_ITS ---
FINAL REPORT TECHNIQUE: Thin section axial CT images of the facial bones and sinuses were obtained without contrast. Coronal reformatted images were also obtained.This study was performed with techniques to keep radiation doses as low as reasonably achievable, (ALARA). Individualized dose reduction techniques using automated exposure control or adjustment of mA and/or kV according to the patient''''s size were employed. CLINICAL HISTORY: inferior hypertrophy of nasal turbinate COMPARISON: CT head 04/27/2019 FINDINGS: There are postoperative changes in the anterior maxillary sinuses and bilateral mandible. There is moderate mucosal thickening in the right maxillary sinus. There is mild mucosal thickening in the left maxillary sinus. There are bony deformities involving the inferior right maxillary sinus, medial right maxillary sinus, and right hard palate which may represent postoperative changes versus bony erosions. Soft tissue obstructs the right maxillary sinus ostium and infundibulum. Mucosal thickening narrows the left maxillary sinus ostium. There is mild rightward nasal septal deviation. No fluid levels are noted. IMPRESSION: Postoperative changes. Bilateral maxillary sinusitis, right worse than left. Surgical defects versus erosions in the medial right maxillary sinus and right hard palate. Reviewed, Interpreted and Dictated by Ralph Helm III, MD Transcribed by Kayli Brown Authenticated and [facility]
== END ==
PROVIDERS: PCP Physician Assistant; Visit Provider Otolaryngology
DX: J34.3 Hypertrophy of nasal turbinates (principal)
CPT/HCPCS: 70486

== ENCOUNTER 2023-07-02 18:36 | Outpatient (CLI) | payer OTHER, SELFPAY | END 2023-07-02 23:59 | LOC: LAB.DROPOF 18:36 | PROVIDERS: PCP Student in an Organized Health Care Education/Training Program; Visit Provider Student in an Organized Health Care Education/Training Program | DX: N39.0 Urinary tract infection, site not specified (principal); B96.4 Proteus (mirabilis) (morganii) as the cause of diseases classified elsewhere; B96.89 Other specified bacterial agents as the cause of diseases classified elsewhere | CPT/HCPCS: 87086 ==

== ENCOUNTER 2023-07-04 10:19 | Emergency (ER) | payer OTHER, SELFPAY ==
[2023-07-04 11:20] VITALS: BP 137/79; PULSE 84; RESP 18; TEMP 36.6; O2SAT 97; BMI 49.8
[2023-07-04 11:39] LABS: UTC Strep Screen (Rapid) Negative (Negative)
--- NOTE | 2023-07-04 11:43 | ED_ITS ---
Discharge Plan Disposition Patient Disposition: Home, Self-Care Condition: Good Prescriptions Prescriptions: New amoxicillin [amoxicillin] 500 mg tablet 500 mg PO BID 10 Days Qty: 20 0RF No Action nitrofurantoin monohyd/m-cryst 100 mg capsule 100 mg PO Q12H 7 Days Qty: 14 0RF Rx Instructions: must administer with a meal/food levocetirizine [Xyzal] 5 mg tablet 5 mg PO DAILY Qty: 30 3RF fluoxetine 40 mg capsule 40 mg PO DAILY bupropion HCl 300 MG tablet extended release 24 hr 300 mg PO DAILY Referrals Follow up/Referrals: Angie Short PA [Primary Care Provider] - See instructions Activity Restrictions/Add. Instructions Additional Instructions/Restrictions: Start antibiotics today be sure to take it as ordered with the full length of time although you should start feeling better in 24-48 hours. Change toothbrush and toothpaste 24-48 hours after starting antibiotics Tylenol or Motrin as needed for fever or pain Encourage fluids, water, Gatorade, Powerade, try cold fluids, popsicles, ice cream will make it feel better You are contagious for 24 hours. Avoid kissing anyone, no eating or drinking after anyone. You are contagious. Follow-up the ER for new or worsening symptoms or no noticeable improvement over the next 24-48 hours. Follow-up with PCP this week. Clinical Impressions Clinical Impression: Strep sore throat Otitis media Qualifiers: Otitis media type: suppurative Chronicity: acute Laterality: left Recurrence: non-recurrent Spontaneous tympanic membrane rupture: without spontaneous rupture Qualified Code(s): H66.002 - Acute suppurative otitis media without spontaneous rupture of ear drum, left ear Instructions Patient Instructions: DI for Strep Throat, Middle Ear Infection Discharge ED Provider: Elina ([facility])[place] [facility] [place] General Stated complaint: sore throat Mode of Arrival: Ambulatory Source of Information: Patient Limitations: No Limitations Time Seen by Provider: 07/04/23 11:43 Description of Symptoms (Recalled from Triage Doc. by RN): Pt's symptoms are sore throat. HEENT Symptoms (Recalled from RN notes): Yes Resp Symptoms (Recalled from RN notes): No Skin Symptoms (Recalled from RN notes): No MS Symptoms (Recalled from RN notes): No Functional Status (Recalled from RN notes): n/a History of Present Illness Provider Complaint: 22 yr old female presents for sore throat for 2 days Related Data Home Medications Medication Instructions Recorded Confirmed bupropion HCl 300 mg 24 hr tablet, 300 mg PO DAILY Anxiety 10/30/18 07/04/23 extended release fluoxetine 40 mg capsule 40 mg PO DAILY 05/12/23 07/04/23 Previous Rx's Medication Instructions Recorded levocetirizine 5 mg tablet (Xyzal) 5 mg PO DAILY #30 tabs 04/07/23 nitrofurantoin 100 mg PO Q12H 7 days #14 caps 07/02/23 monohydrate/macrocrystals 100 mg capsule amoxicillin 500 mg tablet 500 mg PO BID 10 days #20 tabs 07/04/23 Allergies Allergy/AdvReac Type Severity Reaction Status Date / Time cefdinir Allergy Mild Verified 07/04/23 11:29 ceftriaxone [From Rocephin] Allergy Mild Verified 07/04/23 11:29 Worker's Comp Is this a Worker's Comp case?: No [facility] Disclaimer: The information contained in this section may have been updated after the patient was seen, as this information can be updated by other users. 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[employer]) Chronic sinusitis Deviated septum Frontal headache Hypertrophy of inferior nasal turbinate Pharyngitis Surgical History , [employer] SALES MANAGER) H/O laparoscopy History of mandibular surgery History of right salpingo-oophorectomy Family History , [employer] SALES MANAGER) Family history non-contributory No significant family history Social History , [employer] SALES MANAGER) Smoking Status: Never smoker second hand exposure: No alcohol intake: never substance use type: denies use current occupational status: student Travel in the last 8 weeks: None household members: family housing: house current occupational exposures/hazards: No ROS Obtained: Yes All systems reviewed & no additional complaints except as documented Constitutional Constitutional: Reports system reviewed and no additional complaints, except as documented and Reports as per HPI Eyes Eyes: Reports system reviewed and no additional complaints, except as documented ENT Ears, Nose, Mouth, and Throat: Reports system reviewed and no additional complaints, except as documented, Reports as per HPI and Reports sore throat Cardiovascular Cardiovascular: Reports system reviewed and no additional complaints, except as documented Respiratory Respiratory: Reports system reviewed and no additional complaints, except as documented Musculoskeletal Musculoskeletal: Reports system reviewed and no additional complaints, except as documented Integumentary/Breasts Skin/Breast: Reports system reviewed and no additional complaints, except as documented Neurologic Neurologic: Reports system reviewed and no additional complaints, except as documented Hematologic/Lymphatic Henatologic/Lymphatic: Reports system reviewed and no additional complaints, except as documented Allergic/Immunologic Allergic/Immunologic: Reports system reviewed and no additional complaints, except as documented Physical Exam General General appearance: alert and in no apparent distress Eye Eye exam: Present normal appearance and PERRL ENT ENT exam: Present mucous membranes moist Expanded ENT Exam TM/Canal exam: Left TM: erythema and bulging Throat exam: Present tonsillar erythema, tonsillomegaly and tonsillar exudate Respiratory Respiratory exam: Present normal lung sounds bilaterally Cardiovascular Cardiovascular exam: Present regular rate and normal rhythm Neurological Exam Neurological exam: Present alert and oriented X3 Skin Skin exam: Present warm and intact Medical Decision Making Medical Records Medical records reviewed: Yes I reviewed the patient's medical records. Mathew Inquiry Pt receiving controlled substance: No Mathew was queried for this patient: No Vital Signs: 07/04/23 11:20 Temperature 97.9 F Temperature Source Oral Pulse Rate [Right Radial] 84 Respiratory Rate 18 Blood Pressure [Right Arm] 137/79 Blood Pressure Mean [Right Arm] 98 Blood Pressure Source [Right Arm] Automatic Cuff Blood Pressure Position [Right Arm] Sitting 02 Sat by Pulse Oximetry 97 Oxygen Delivery Method Room Air Lab Data Lab results reviewed: Yes I reviewed the patient's lab results. Lab Results 07/04/23 11:30: Strep Scn Rapid Clinic Negative Orders (Tests/Meds): ORDERS Category Date Time Status Strep Screen Confirmation Stat Micro 07/04/23 11:30 Received
[2023-07-04 11:46] VITALS: BP 137/79; PULSE 84; RESP 18; TEMP 36.6; O2SAT 97
== END 2023-07-04 11:57 | disposition home or self-care (01) ==
PROVIDERS: Emergency Provider Nurse Practitioner Family; PCP Physician Assistant
DX: J02.0 Streptococcal pharyngitis (principal); H66.002 Acute suppurative otitis media without spontaneous rupture of ear drum, left ear; R07.0 Pain in throat
CPT/HCPCS: 87880; 99212; 99214; G0463

== ENCOUNTER 2023-09-17 14:21 | Outpatient (CLI) | payer OTHER, SELFPAY ==
[2023-09-17 14:29] LABS: MANUAL DIFFERENTIAL MANUAL DIFFERENTIAL (MANUAL DIFF)
--- NOTE | 2023-09-17 14:31 | XR_ITS ---
FINAL REPORT CLINICAL HISTORY: previous mandible surgery with metal pt states eval hardware from surgery to determine if MRI is an option FINDINGS: Three views were obtained. There are postoperative changes in the maxilla and mandible. Multiple screw plate and screws are present. There is no evidence of orbital foreign body. IMPRESSION: Postsurgical changes. No evidence of orbital foreign body. Reviewed, Interpreted and Dictated by Ralph Helm III, MD Transcribed by Lauren Steel Authenticated and [facility]
[2023-09-17 14:57] LABS: Basophils % 0.6 % (0.1-2.0); Eosinophils # 0.1 K/mm3 (0.0-0.4); Eosinophils % 1.5 % (0.1-12.0); Lymphocytes # 1.3 K/mm3 (0.7-4.5); Lymphocytes % 17.6 % (10-50); Mean Corpuscular HGB Conc 32.4 g/dL (31.8-35.4); Mean Corpuscular Hemoglobin 25.7 pg (27.0-31.2); Mean Corpuscular Volume 79.4 fl (81-99); Monocytes # 0.4 K/mm3 (0.1-1.0); Monocytes % 4.8 % (1.7-9.3); Neutrophils # 5.8 K/mm3 (1.8-7.8); Neutrophils % 75.7 % (37.0-80.0); Platelet Count 352 K/mm3 (142-424); Red Blood Count 4.66 M/mm3 (4.20-5.40); Red Cell Distribution Width 15.7 % (11.5-17.5); White Blood Count 7.6 K/mm3 (4.8-10.8)
[2023-09-17 15:16] LABS: Chloride 108 mmol/L (98-107); Sodium 139 mmol/L (136-145)
[2023-09-17 15:18] LABS: Alanine Aminotransferase 32 U/L (12-78); Aspartate Amino Transferase 24 U/L (14-36); Blood Urea Nitrogen 10 mg/dl (7-17); Estimated Glomerular Filt Rate 106 ml/min (>60); GFR (African American) 128 ML/MIN (>60)
[2023-09-17 15:19] LABS: Albumin Level 4.1 g/dl (3.5-5.0); Albumin/Globulin Ratio 1.3 (1.1-1.8); Alkaline Phosphatase 87 U/L (38-126); Bilirubin,Total 0.5 mg/dl (0.2-1.3); Calcium 9.4 mg/dl (8.4-10.2); Carbon Dioxide 24 mmol/L (22.0-30.0); Globulin 3.1 g/dL (1.3-3.2); Glucose 90 mg/dl (74-100); Total Protein,Serum 7.2 g/dl (6.3-8.2)
[2023-09-17 15:24] LABS: Eosinophils % 2 % (0-3); Hypochromasia 1+; Lymphocytes % 21 % (10-50); Monocytes % 1 % (2-9); Neutrophils % 76 % (42-76); Platelet Estimate Normal; Total Cells Counted 100
[2023-09-17 15:49] LABS: Thyroid Stimulating Hormone 1.27 uIU/mL (0.465-4.68)
[2023-09-26 17:16] LABS: 1,25 Dihydroxy Vitamin D 56 pg/mL (.); 1,25-Dihydroxy, Vitamin D-2 <10 pg/mL (.); 1,25-Dihydroxy, Vitamin D-3 56 pg/mL (.)
== END 2023-09-17 23:59 | disposition home or self-care (01) ==
PROVIDERS: PCP Physician Assistant; Visit Provider Specialist
DX: R51.9 Headache, unspecified (principal); J32.9 Chronic sinusitis, unspecified; E66.9 Obesity, unspecified; Z68.43 Body mass index [BMI] 50.0-59.9, adult
CPT/HCPCS: 36415; 70140; 80053; 82652; 84443; 85007; 85014; 85018; 85048; 85049

== ENCOUNTER 2023-09-18 14:17 | Outpatient (CLI) | payer OTHER, SELFPAY ==
[2023-09-18 15:12] LABS: Iron 48 ug/dL (37-170)
[2023-09-18 15:21] LABS: Total Iron Binding Capacity 299 ug/dL (265-497)
[2023-09-18 15:48] LABS: Ferritin 25.6 ng/ml (6.24-137)
== END 2023-09-18 23:59 | disposition home or self-care (01) ==
LOC: LAB 14:19
PROVIDERS: PCP Physician Assistant; Visit Provider Specialist
DX: E61.1 Iron deficiency (principal)
CPT/HCPCS: 36415; 82728; 83540; 83550

== ENCOUNTER 2023-09-22 18:20 | Outpatient (CLI) | payer OTHER, SELFPAY ==
--- NOTE | 2023-09-22 18:20 | MR_ITS ---
PROCEDURE INFORMATION: Exam: MR Head Without and With Contrast Exam date and time: 09/22/2023 6:23 PM Age: 22 years old Clinical indication: Pain; Headache TECHNIQUE: Imaging protocol: Magnetic resonance imaging of the head without and with contrast. Contrast material: ISOVUE; Contrast volume: 30 ml; Contrast route: IV; COMPARISON: CT HEAD/BRAIN WO CON 04/27/2019 8:12 AM FINDINGS: Brain: No acute infarct. No hemorrhage. No significant white matter disease. No edema. No midline shift. No enhancing lesions. Cerebral ventricles: No ventriculomegaly. Age appropriate. Bones: No bone lesions. Paranasal sinuses: No fluid levels or significant mucosal thickening. Mastoid air cells: Normal as visualized. No mastoid effusion. Orbital cavities: No masses or muscle thickening. Soft tissues: No masses. IMPRESSION: No acute intracranial abnormalities.
[2023-09-22] MEDS: GADOTERIDOL INJ 17ML SYRINGE 30 ML IV (19:06)
[2023-09-22] MEDS: SODIUM CHLORIDE 0.9% 10ML SYR (RAD ONLY) 10 ML IV (19:06)
== END 2023-09-22 23:59 | disposition home or self-care (01) ==
LOC: RAD 18:20
PROVIDERS: PCP Physician Assistant; Visit Provider Specialist
DX: R51.9 Headache, unspecified (principal); J32.9 Chronic sinusitis, unspecified
CPT/HCPCS: 70553; A9576

== ENCOUNTER 2023-10-27 12:41 | Outpatient (CLI) | payer OTHER, SELFPAY ==
[2023-10-27 13:09] LABS: Basophils # 0.1 K/mm3 (0-0.2); Basophils % 0.8 % (0.1-2.0); Eosinophils # 0.1 K/mm3 (0.0-0.4); Eosinophils % 1.7 % (0.1-12.0); Hematocrit 39.5 % (37.0-47.0); Hemoglobin 12.8 g/dL (12.2-16.2); Lymphocytes # 2.1 K/mm3 (0.7-4.5); Lymphocytes % 28.3 % (10-50); Mean Corpuscular HGB Conc 32.4 g/dL (31.8-35.4); Mean Corpuscular Hemoglobin 26.7 pg (27.0-31.2); Mean Corpuscular Volume 82.4 fl (81-99); Mean Platelet Volume 7.2 fl (7.4-10.4); Monocytes # 0.3 K/mm3 (0.1-1.0); Neutrophils # 4.9 K/mm3 (1.8-7.8); Neutrophils % 65.2 % (37.0-80.0); Platelet Count 357 K/mm3 (142-424); Red Blood Count 4.79 M/mm3 (4.20-5.40); Red Cell Distribution Width 16.4 % (11.5-17.5); White Blood Count 7.5 K/mm3 (4.8-10.8)
[2023-10-27 13:39] LABS: Alanine Aminotransferase 34 U/L (12-78); Albumin Level 4.3 g/dl (3.5-5.0); Albumin/Globulin Ratio 1.3 (1.1-1.8); Alkaline Phosphatase 81 U/L (38-126); Aspartate Amino Transferase 24 U/L (14-36); Bilirubin,Total 0.4 mg/dl (0.2-1.3); Calcium 9.7 mg/dl (8.4-10.2); Globulin 3.2 g/dL (1.3-3.2); Glucose 114 mg/dl (74-100); HDL Cholesterol 42 mg/dl (40-60); Potassium 4.1 mmoL/L (3.5-5.1); Sodium 141 mmol/L (136-145); Total Protein,Serum 7.5 g/dl (6.3-8.2)
[2023-10-27 13:41] LABS: Anion Gap 14.1 mEq/L (5-15); Blood Urea Nitrogen 13 mg/dl (7-17); Carbon Dioxide 25 mmol/L (22.0-30.0); Chloride 106 mmol/L (98-107); Chol/HDL Ratio 3.5 (1-3.5); Cholesterol 146 mg/dl (140-200); Estimated Glomerular Filt Rate 91 ml/min (>60); GFR (African American) 110 ML/MIN (>60); Triglycerides 60 mg/dl (30-150); VLDL Cholesterol 12 mg/dL (0-40)
[2023-10-27 13:50] LABS: Direct LDL Cholesterol 84.77 mg/dL (100-129)
[2023-10-27 13:55] LABS: 25-OH Vitamin D, Total 32.5 ng/mL (30-100)
[2023-10-27 14:07] LABS: Iron 44 ug/dL (37-170)
[2023-10-27 14:19] LABS: Total Iron Binding Capacity 304 ug/dL (265-497)
[2023-10-27 14:28] LABS: Vitamin B12 451 pg/mL (239-931)
[2023-10-27 14:44] LABS: Ferritin 24.2 ng/ml (6.24-137)
[2023-10-27 15:03] LABS: Thyroid Stimulating Hormone 1.97 uIU/mL (0.465-4.68)
== END 2023-10-27 23:59 | disposition home or self-care (01) ==
LOC: LAB 12:42
PROVIDERS: PCP Physician Assistant; Visit Provider Physician Assistant
DX: E61.1 Iron deficiency (principal); Z68.43 Body mass index [BMI] 50.0-59.9, adult; E66.9 Obesity, unspecified
CPT/HCPCS: 36415; 80050; 80053; 80061; 82306; 82607; 82728; 83540; 83550; 84443; 85025

== ENCOUNTER 2024-05-08 17:28 | Emergency (ER) | payer OTHER, SELFPAY ==
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
[2024-05-08 18:22] VITALS: BP 146/84; PULSE 96; RESP 20; TEMP 36.8; O2SAT 99; BMI 52.7
[2024-05-08] MEDS: DEXAMETHASONE 4MG/ML 1ML VIAL 10 MG IM (18:30)
[2024-05-08 18:31] LABS: UTC Strep Screen (Rapid) Negative (Negative)
[2024-05-08 19:08] VITALS: BP 146/84; PULSE 96; RESP 20; TEMP 36.8
== END 2024-05-08 19:13 | disposition home or self-care (01) ==
PROVIDERS: Emergency Provider Nurse Practitioner Family; PCP Physician Assistant
DX: H66.93 Otitis media, unspecified, bilateral (principal); H92.03 Otalgia, bilateral; R50.9 Fever, unspecified; R63.8 Other symptoms and signs concerning food and fluid intake; R05.9 Cough, unspecified
CPT/HCPCS: 87880; 96372; 99212; G0381; J1100

== ENCOUNTER 2024-10-14 08:47 | Outpatient (CLI) | payer OTHER, SELFPAY ==
--- OUTSIDE RECORDS SUMMARY | 2024-10-17 08:54 | XMS_ITS | Clinical Summary ---
Author Organization [facility] Address [address] [place] [address] Care Team Providers Care Belt Changer Name Role Phone Maldonado Mariscal MD Primary Care Provider [phone] Allergies Active Allergy Reactions Criticality Noted Date Comments Cefdinir Hives,Unknown - Karyna ent states they do not know rxn details Medium 03/12/2017 Ceftriaxone Hives Medium 04/18/2020 Medications * This document contains information received from the source organization and may not represent a complete record from that organization. FLUoxetine (PROzac) 20 MG capsule Take 1 capsule (20 mg) by mouth 1 (one) time each day. 30 capsule 5 3 Active FLUoxetine (PROzac) 40 MG capsuleIndicatio ns:Major depressive disorder, remission status unspecified, unspecified whether recurrent Take 2 capsules (80 mg) by mouth 1 (one) time each day. 30 capsule 5 4 Active buPROPion XL (Wellbutrin XL) 300 MG 24 hr tabletIndication s:Major depressive disorder, remission status unspecified, unspecified whether recurrent Take 1 tablet (300 mg) by mouth 1 (one) time each day. Do not crush, chew, or split. 30 tablet 5 4 Active Active Problems No known active problems Social History Tobacco Use Types Packs/Day Years Used Date Smoking Tobacco: Passive Smo ke Exposure - Never Smoker Comments:Exposure to second hand smoke at work PHQ-2 Answer Date Recorded Patient Health Questionnaire-2 Score 4 06/18/2023 PHQ-9 Answer Date Recorded Patient Health Questionnaire-9 Score 9 06/18/2023 PHQ-2A Answer Date Recorded Patient Health Questionnaire-2 Score 2 12/23/2022 Comments Unknown Sex and Gender Information Value Date Recorded Sex Assigned at Female 04/23/2021 12:58 PM EST Legal Sex Female 6:38 PM EDT Gender Identity Female 04/23/2021 12:58 PM EST Sexual Orientation Not on file Last Filed Vital Signs Vital Sign Reading Time Taken Comments Blood Pressure 127/71 04/28/2022 1:05 PM EST Pulse 70 04/28/2022 1:05 PM EST Temperature - - Respiratory Rate - - Oxygen Saturation - - Inhaled Oxygen Concentration - - Weight 149 kg (328 lb 7.8 oz) 04/28/2022 1:05 PM EST Height 172.7 cm (5' 8 ) 04/28/2022 1:05 PM EST Body Mass Index 49.95 04/28/2022 1:05 PM EST Plan of Treatment Health Maintenance Due Date Last Done Comments Dental Oral Exam 2001 Dental Prophylaxis 2001 Dental X-Ray: Bitewings 2001 Dental X-Ray: Full Mouth 2001 [facility]-HIV Screening 2001 [facility]-Hepatitis C Screening 2001 [facility]-Infant/Child/Adol SDOH Screenings 2001 HPV Vaccines (3 - 3-dose series) 03/25/2018 12/31/2017, 08/04/2017 [facility]- SDOH Screenings 12/19/2019 [facility]-Adult SDOH Screenings 12/19/2019 [facility]-Pap Smear 2022 [id number] Vaccine (3 - season) 2024 02/07/2021, 01/17/2021 [facility]-Depression Screening 06/18/2024 06/18/2023, 0212/2023 [facility]-Influenza Vaccine (Season Ended) 2025 [facility]-DTaP,Tdap,and Td Vaccines (8 - Td or Tdap) 10/30/2028 10/30/2018, 05/09/2012, 07/08/2006, Additional history exists [facility]-Zoster Vaccines (1 of 2) 12/19/2051 08/04/2017, 01/02/2003 [facility]-Hepatitis B Vaccines Completed 003, 02/21/2002, 2001 [facility]-HIB Vaccines Completed 07/12/2003, , 05/09/2002, Additional history exists [facility]-IPV Vaccines Completed 07/08/2006, , 07/21/2002, Additional history exists [facility]-Varicella Vaccines Completed 08/04/2017, 2002 [facility]-Hepatitis A Vaccines Completed 03/22/2018, 05/2017 [facility]-Obesity Intervention Completed 06/18/2023, 04/10 [facility]-Pneumococcal Vaccine: Pediatrics (0 to 5 Years) and At-Risk Patients (6 to 49 Years) Aged Out No longer eligible based on patient's age to complete this topic [facility]-Rotavirus Vaccines Aged Out No lo nger eligible based on patient's age to complete this topic Insurance [facility] MEDICAID [employer] [employer] [facility] Care Teams Belt Changer Relationship Specialty Start Date End Date Maldonado Mariscal MD [address] [place] [address] PCP - General 09/21/20
--- OUTSIDE RECORDS SUMMARY | 2024-10-17 08:54 | XMS_ITS | Continuity of Care Document ---
Author Organization [place] - [employer] [facility] Address [address] [place] [address] Assessment No assessment recorded. Plan of Treatment Reminders Order Date Submit Date Provider Last Modified By Organization Details Last Modified Time Details Appointments None recorded. Lab lipid panel, serum 2024 025 [place] [facility] [address] [place], [address], 5 08:24:47 CMP, serum or plasma 2024 025 [place] [facility] [address] [place], [address], 5 08:24:47 CBC w/ auto diff 2024 025 [place] [facility] [address] [place], [address], 5 08:24:46 vitamin D, 25-hydroxy, total, serum 2024 025 [place] [facility]), [address] [place], [address], 5 08:24:49 TSH, ultra-sensi tive, serum 2024 025 [place] [facility] [address] [place], [address], 5 08:24:48 iron + TIBC + ferritin, serum 2024 025 [place] [facility] [address] [place], [address], 5 08:24:45 Hepatitis C IgG Ab, qual, serum 2024 025 [place] [facility] [address] [place], [address], 5 08:24:48 HIV 1 + 2, meaningful use set 2024 025 [place] [facility] [address] [place], [address], 5 08:24:49 Referral None recorded. Procedures None recorded. Surgeries None recorded. Imaging None recorded. Medication Orders None recorded. Patient TargetsNo targets recorded. Patient Instructions Encounter Date Encounter Id Patient Instructions Last Modified By Organization Details Last Modified Time 09/23/2024 [id number] body mass index: care instructions [email or web address] Not available 09/26/2024 12:39:42 learning about healthy weight [email or web address] Not available 09/26/2024 12:39:42 fatigue: care instructions [email or web address] Not available 09/23/2024 16:46:41 HIV testing: car e instructions [email or web address] Not available 09/23/2024 16:46:41 Reason for Referral None Reported. Problems Name Problem SNOMED Code Status Onset Date Resolution Date Notes Provider Name and Address Organization Details Recorded Time Vitamin D deficiency 24018247 Active 025 GARRETT Suresh [address] [place] [address], [id number] [facility] [employer] 16:59:19 Problem Notes None recorded. Procedures Surgical History Date Name Laterality Status Provider Name and Address Organization Details Recorded Time Other completed [employer] 09/23/2024 16:11:57 right salpingectomy completed [employer] 09/23/2024 16:10:49 orthognathic operation of mandible completed [employer] 09/23/2024 16:11:22 Imaging Results None recorded. Procedure Notes None recorded. Medical Equipment None Reported. Allergies Allergen ID Allergen Name Allergen Category Reaction Reaction Severity Criticality Documentation Date Start Date Code Code System Note Provider Name and Address Organization Details Recorded Time 91799 cefdinir medicatio n Not available Not available Not available 09/23/2024 51665 RxNorm Stephanie [employer], [employer] 16:07:58 26633 Rocephin medicatio n Not available Not available Not available 09/23/2024 9449 RxNorm Stephanie [employer], [employer] 16:08:05 Medications Name Sig Start Date Stop Date Status Note LastModified by Organization Details LastModified Time fluoxetine 40 mg capsule TAKE ONE CAPSULE BY MOUTH EVERY DAY 09/23 completed Not Available Not Available Not Available sumatriptan 100 mg tablet TAKE ONE TABLET BY MOUTH AT ONSET of HEADACHE; if no RELIEF TAKE ONE TABLET BY MOUTH AFTER AT least 2 hours max = 2 tabsl/24 hours NEEDED active Not Available Not Available No t Available triamcinolo ne acetonide 0.1 % topical cream APPLY TOPICALLY TO THE AFFECTED AREA(S) THREE TIMES DAILY NEEDED FOR eczema active Not Available Not Available No t Available propranolol 40 mg tablet TAKE ONE TABLET BY MOUTH TWICE DAILY FOR HEADACHE preventio n 09/23 completed Not Available Not Available Not Available ergocalcife rol (vitamin D2) 1,250 mcg (50,000 unit) capsule TAKE ONE CAPSULE BY MOUTH EVERY WEEK FOR VITAMIN D DEFICIENC Y active Not Available Not Available No t Available methylpredn isolone 4 mg tablets in a dose pack TAKE ACCORDING TO PACKAGE INSTRUCTI ONS --TAKE WITH FOOD-- -- FINISH ALL MEDICINE -- 09/23 completed Not Available Not Available Not Available bromphenira mine-pseudo ephedrine-D M 2 mg-30 mg-10 mg/5 mL oral syrup TAKE 1 TEASPOONF UL (5 ML) BY MOUTH EVERY 6 HOURS NEEDED FOR COUGH 09/23 completed Not Available Not Available Not Available amoxicillin 875 mg-potassiu m clavulanate 125 mg tablet TAKE ONE TABLET BY MOUTH TWICE DAILY FOR 10 DAYS -- FINISH ALL MEDICINE -- 09/23 completed Not Available Not Available Not Available bupropion HCl XL 300 mg 24 hr tablet, extended release TAKE ONE TABLET BY MOUTH EVERY DAY FOR ANXIETY active Not Available Not Available No t Available nitrofurant oin monohydrate /macrocryst als 100 mg capsule TAKE ONE CAPSULE BY MOUTH EVERY TWELVE HOURS FOR 5 DAYS --TAKE WITH FOOD-- active Not Available Not Available No t Available cholecalcif vivi (vitamin D3) 50 mcg (2,000 unit) capsule TAKE ONE CAPSULE BY MOUTH EVERY DAY FOR VITAMIN D DEFICIENC Y active Not Available Not Available No t Available vilazodone 20 mg tablet TAKE ONE TABLET BY MOUTH EVERY DAY active Not Available Not Available No t Available guaifenesin ER 600 mg tablet, extended release 12 hr TAKE TWO TABLETS BY MOUTH TWICE DAILY 09/23 completed Not Available Not Available Not Available Vraylar 1.5 mg capsule TAKE ONE CAPSULE BY MOUTH EVERY DAY active Not Available Not Available No t Available Vitals Date Recorded Body weight Body mass index (BMI) Body height Oxygen saturation Oxygen saturation in Arterial blood by Pulse oximetry Heart rate Body temperature Systolic blood pressure Diastolic blood pressure Provider Name and Address Organization Details Last Updated DateTime 388326. 87 g 52 kg/m2 172.72 cm 97 % 97 % 96 /min 98.3 [degF] 112 mm[Hg] 76 mm[Hg] Stephanieyajaira Oliveira [employer] 16:07:44 Social History Question Answer Notes LastModified by Organizat ion Details LastModified Time Tobacco Smoking Status Never Smoker [facility] [employer] 09/23/2024 16:00:35 Do You Have An Advance Directive? No Information n ot available 09/23/2024 Is Your Home Air Conditioned? Yes Information not available 09/23/2024 If You Are , What Was Your Level Of Alcohol Consumption Prior To ? None Information not available 09/23/2024 Do You Wear A Helmet When Biking? No Information not available 09/23/2024 Are You Blind Or Do You Have Difficulty Seeing? No Information n ot available 09/23/2024 What Is Your Level Of Caffeine Consumption? Moderate Information not available 09/23/2024 What Type Of Inspector Precision Do You Use? None Information not available 09/23/2024 Have You Been To An Area Known To Be High Risk For COVID-19? No Information not available 09/23/2024 Are You Deaf Or Do You Have Serious Difficulty Hearing? No Information not available 09/23/2024 What Type Of Diet Are You Following? REGULAR Information n ot available 09/23/2024 What Is The Highest Grade Or Level Of School You Have Completed Or The Highest Degree You Have Received? [id number] Information not available 09/23/2024 Have There Been Any Changes To Your Family Or Social Situation? No Information no t available 09/23/2024 Are There Any Guns Present In Your Home? Yes Information not available 09/23/2024 Which Of Your Hands Is Dominant? Right Information n ot available 09/23/2024 What Is Your Home Situation? Both Parents Information not available 09/23/2024 Do You Have A Medical Power Of Relationship Executive? No Information not available 09/23/2024 What Was The Date Of Your Most Recent Tobacco Screening? 09/23/2024 Information not available 09/23/2024 Do You Have Any Pets? Yes Information not available 09/23/2024 What Is Your Relationship Status? Single Information not available 09/23/2024 Have You Repeated Any Grades? No Information not available 09/23/2024 Do You Use Your Seat Belt Or Car Seat Routinely? Yes Information not available 09/23/2024 Are You Sexually Active? No Information not available 09/23/2024 Do You Have Any Siblings? 1 Brother Information not available 09/23/2024 Do You Have Smoke And Carbon Monoxide Detectors In Your Home? Yes Information not available 09/23/2024 Are You Passively Exposed To Smoke? No Information no t available 09/23/2024 Are There Any Smokers In Your House? No Information not available 09/23/2024 Do You Participate In Social Media? Yes Information not available 09/23/2024 Do You Use Sunscreen Routinely? No Information not available 09/23/2024 Has Tobacco Cessation Counseling Been Provided? No Information not available 09/23/2024 Have You Recently Traveled Abroad? No Information not available 09/23/2024 Do You Have Difficulty Walking Or Climbing Stairs? No Information not available 09/23/2024 Are You Currently In School? No Information not available 09/23/2024 What Contraceptive Method Was Reported At Start Of This Visit? None Information not available 09/23/2024 Do You Have Any Dietary Restrictions? No Information not available 09/23/2024 Sex: Unknown Functional Status Question Answer Note LastModified by Organizat ion Details LastModified Time Do you use any illicit or recreational drugs? No Information not available 09/23/2024 Do you or have you ever used any other forms of tobacco or nicotine? No Information not available 09/23/2024 What is your level of alcohol consumption? None Information not available 09/23/2024 Are you currently employed? No Information not available 09/23/2024 Do you have transportation difficulties? No Information not available 09/23/2024 Are you able to walk? YESWOREST Information not available 09/23/2024 Do you have difficulty doing errands alone? No Information not available 09/23/2024 Are you able to care for yourself? Yes Information n ot available 09/23/2024 Do you have difficulty dressing or bathing? No Information not available 09/23/2024 What is your exercise level? Occasional Information not available 09/23/2024 Mental Status Question Answer Note LastModified by Organizat ion Details LastModified Time Do you feel stressed (tense, restless, nervous, or anxious, or unable to sleep at night)? [id number] Information not available 09/23/2024 Do you have difficulty concentrating, remembering or making decisions? No Information no t available 09/23/2024 Are you or have you been involved with bullying? No Information not available 09/23/2024 Family History Nothing Reported. Medical History Condition Response Coronary Artery Disease N Other N Gout N Kidney Stones N Blood Diseases N Hyperthyroidism N Blood Transfusion N Breast Cancer N Emergency room visit since last appointm ent. N COPD N Depression Y Dermatologic Disorders N Hypothyroidism N Lung Disease N Developmental or Behavioral Disorders N Defects or Inherited Disease N Breast Problem N Difficulty Swallowing N Anesthesia Complications N History of STI N Meniere's disease N Anxiety Disorder Y Muscle, Joint, or Bone Problems N Autoimmune disease N Vision or Eye Problems N Arthritis N Polyps N Infertility N Mental Disorder N Congenital Anomalies N Acid Reflux (GERD) N Cancer N Stroke N Neurologic/Epilepsy N Endometriosis N Bladder or Kidney Problems N High Cholesterol N Liver Disease N Organ Transplant N Psychiatric/Mental Health Condition N Fibromyalgia N Dialysis N Schizophrenia N Headaches N Kidney Disease N Allergies/Hayfever N Heart Problems N Ear or Hearing Problems N Hospitalizations N Learning Disorder N Artificial Joints N Thyroid Problems N GI Problems N Acne N ADD/ADHD N Eating Disorder N Anemia N Constipation N Mental Illness N Ovarian Cancer N Diabetes N Bedwetting N Hepatitis/Liver Disease N Tuberculosis N Eczema N Diverticulitis N Abuse/Domestic Violence N Asthma N Trauma/Violence N Substance Abuse N Reflux/GERD N Depression/ depression N Hepatitis N Heart Disease N Pulmonary Embolism N Tourette Syndrome N Chronic Ear Infections N Pre-Eclampsia N Hypertension N Chicken Pox N Autism Spectrum Disorder (ASD) N Osteoporosis N Thrombophilias N Gynecological History Statement/Question Response Flow Moderate Frequency of Cycle (Q days) 28 Date of LMP 09/19/2024 Menses Monthly Y HPV Vaccine Y Date of Last Pap Smear Duration of Flow (days) 6 Most Recent Mammogram Age at Menarche 13 Current Control Method None LMP Definite Obstetrics History GPAL:G 0 P 0 0 0 0 Immunizations Vaccine Type Date Status Note Provider Nam e and Address Organization Details Recorded Time Hep B, adolescent or pediatric 2 completed Not Available [facility] 09/23/2024 15:58:18 DTaP, 5 pertussis antigens 2 completed Not Available [facility] 09/23/2024 15:58:18 Hib (PRP-T) 2 completed Not Available [facility] 09/23/2024 15:58:18 IPV 2 completed Not Available [facility] 09/23/2024 15:58:18 Hep B, adolescent or pediatric 2 completed Not Available [facility] 09/23/2024 15:58:18 DTaP, unspecified formulation 2 completed Not Available [facility] 09/23/2024 15:58:18 Hib (PRP-T) 2 completed Not Available [facility] 09/23/2024 15:58:18 IPV 2 completed Not Available [facility] 09/23/2024 15:58:18 DTaP, unspecified formulation 3 completed Not Available [facility] 09/23/2024 15:58:18 Hep B, adolescent or pediatric 3 completed Not Available [facility] 09/23/2024 15:58:18 Hib (PRP-T) 3 completed Not Available [facility] 09/23/2024 15:58:18 IPV 3 completed Not Available [facility] 09/23/2024 15:58:18 varicella 3 completed Not Available [facility] 09/23/2024 15:58:18 MMR 4 completed Not Available [facility] 09/23/2024 15:58:18 Hib (PRP-OMP) 4 completed Not Available [facility] 09/23/2024 15:58:18 DTaP, unspecified formulation 4 completed Not Available [facility] 09/23/2024 15:58:18 MMR 7 completed Not Available [facility] 09/23/2024 15:58:18 DTaP, unspecified formulation 7 completed Not Available [facility] 09/23/2024 15:58:18 IPV 7 completed Not Available [facility] 09/23/2024 15:58:18 DTaP, 5 pertussis antigens 2 completed Not Available [facility] 09/23/2024 15:58:18 HPV9 8 completed Not Available [facility] 09/23/2024 15:58:18 meningococcal MCV4P 8 completed Not Available [facility] 09/23/2024 15:58:18 varicella 8 completed Not Available [facility] 09/23/2024 15:58:18 Hep A, ped/adol, 2 dose 8 completed Not Available [facility] 09/23/2024 15:58:18 HPV9 8 completed Not Available [facility] 09/23/2024 15:58:18 meningococcal MCV4P 8 completed Not Available [facility] 09/23/2024 15:58:18 Hep A, ped/adol, 2 dose 8 completed Not Available [facility] 09/23/2024 15:58:18 Tdap 9 completed Not Available [facility] 09/23/2024 15:58:18 COVID-19, mRNA, LNP-S, PF, 30 mcg/0.3 mL dose 1 completed Not Available [facility] 09/23/2024 15:58:18 COVID-19, mRNA, LNP-S, PF, 30 mcg/0.3 mL dose 1 completed Not Available [facility] 09/23/2024 15:58:18 Past Encounters Encounter ID Performer Location Encounter Start Date Encounter Closed Date Diagnosis/Indication Diagnosis SNOMED-CT Code Diagnosis ICD10 Code Diagnosis Note [id number] GARRETT Suresh [address] [address] 09/23/2024 15:57:35 09/23/2024 16:40:39 Malaise and fatigue 990725905 R53.81 R53.83 Hyperlipid emia screening 501780032 Z13.220 HIV screening 128706012 Z11.4 Viral scre ening status 171041505 Z11.59 Body mass index 40+ - severely obese 038712512 Z68.43 Health Concerns Section Related Observation LastModified by Organization Detai ls LastModified Time None Recorded Concern Status LastModified by Organization Details LastModified Time None Recorded Payers Encounter Date Sequence Insurance Name Policy Number Policy Walters Covered Member ID Walters Member ID Guarantor Name 09/23/2024 1 [facility] (MEDICAID HMO) Yesika Dooley [id number] Yesika Dooley Notes Date Note Type Note Provider Name and Address Organization Details Recorded Time 09/23/2024 text/html Patient presents to establish care at [facility].History of iron deficiency anemia.History of depression.States that she is doing well and has no new complaints. GARRETT Suresh [address] [place] [address], [phone], [facility] [email or web address] 09/26/2024 12:39:44 OBGyn Episode No OBEpisode recorded.
== END 2024-10-14 23:59 | disposition home or self-care (01) ==
LOC: LAB.DROPOF 10-17 08:48
PROVIDERS: PCP Physician Assistant; Visit Provider Nurse Practitioner
DX: N39.0 Urinary tract infection, site not specified (principal)
CPT/HCPCS: 87086